=== PATIENT | male | born 2000 | race Caucasian/White ===

== ENCOUNTER 2018-09-24 18:15 | Emergency (ER) | payer SELFPAY ==
[~2018-09-24] VITALS: Ht 157.5 cm; Wt 74.8 kg
[2018-09-24 18:35] VITALS: BP 131/75
[2018-09-24] MEDS ORDERED: ALBUTEROL SULF 2.5 MG/0.5ML(0.5%) NEB SOLN NEB ONE (21:30)
[2018-09-24] MEDS ORDERED: IPRATROPIUM BROM 0.5 MG/2.5ML INH SOL NEB ONE (21:30)
== END 2018-09-24 22:57 | disposition home or self-care (01) ==
LOC: ER 18:15
DX: J40 Bronchitis, not specified as acute or chronic (principal)
CPT/HCPCS: 71046; 94640; 99283; J7611; J7644